=== PATIENT | male | born 1955 | race African-American/Black ===

== ENCOUNTER → 2017-08-14 | Outpatient (CLI) | payer OTHER ==
[~2017-08-14] MED LIST: CONTRAST GIVEN MC
[2017-08-14] MEDS: IOHEXOL 300 MG/ML 100ML VIAL. IV (09:51)
[2017-08-14] MEDS: IOHEXOL 240 MG/ML 50ML VIAL. PO (09:51)
== END | disposition home or self-care (01) ==
LOC: NM 08:25
DX: C61 Malignant neoplasm of prostate (principal); C79.51 Secondary malignant neoplasm of bone; I10 Essential (primary) hypertension; Z87.891 Personal history of nicotine dependence
CPT/HCPCS: 71260; 74177; 78306; 96374; A9503; Q9966; Q9967

== ENCOUNTER → 2017-10-17 | Outpatient (CLI) | payer OTHER ==
[2017-10-17] MEDS: IOHEXOL 300 MG/ML 100ML VIAL. IV (07:15)
[2017-10-17] MEDS: IOHEXOL 240 MG/ML 50ML VIAL. PO (07:15)
== END | disposition home or self-care (01) ==
LOC: CT 07:59
DX: C61 Malignant neoplasm of prostate (principal); C79.51 Secondary malignant neoplasm of bone; N28.1 Cyst of kidney, acquired; K76.89 Other specified diseases of liver
CPT/HCPCS: 71260; 74177; Q9966; Q9967

== ENCOUNTER 2017-10-31 07:06 | Outpatient (CLI) | payer OTHER ==
[2017-10-31 07:34] LABS: ADD MAN DIFF? NO
[2017-10-31 07:38] LABS: BASO # 0.1 x10^3/uL (0.0-0.2); BASO % 1 % (0-3); EOS # 0.1 x10^3/uL (0.0-0.7); EOS % 3 % (0-3); HEMATOCRIT 33.7 % (39.0-53.0); HEMOGLOBIN 11.6 g/dL (13.0-17.5); LYMPH % 25 % (24-48); MEAN CORPUSCULAR HEMOGLOBIN 32 pg (25-35); MEAN CORPUSCULAR HGB CONC 34 g/dL (31-37); MEAN CORPUSCULAR VOLUME 92 fL (79-100); MONO # 0.4 x10^3/uL (0.0-1.1); MONO % 10 % (0-9); NEUT # 2.5 x10^3uL (1.8-7.7); NEUT % 61 % (31-73); PLATELET COUNT 185 x10^3/uL (140-400); RED BLOOD COUNT 3.68 x10^6/uL (4.30-5.70); RED CELL DISTRIBUTION WIDTH 17.8 % (11.5-14.5); WHITE BLOOD COUNT 4.1 x10^3/uL (4.0-11.0)
[2017-10-31 07:46] LABS: INR 1.1 (0.8-1.1); PROTHROMBIN TIME PATIENT 13.6 SEC (11.7-14.0)
[2017-10-31 07:47] LABS: PARTIAL THROMBOPLASTIN TIME 30 SEC (24-38)
[2017-10-31] MEDS ORDERED: MIDAZOLAM HCL/PF 2 MG/2 ML VIAL. (07:54)
[2017-10-31] MEDS ORDERED: GELATIN SPONGE SIZE 12-7MM SPONGE. (07:54)
[2017-10-31] MEDS ORDERED: fentaNYL PF VIAL 100 MCG/2 ML VIAL (07:54)
[2017-10-31] MEDS ORDERED: LIDOCAINE WITH 8.4% SOD BICARB 3 ML DISP.SYRIN. (07:54)
[2017-10-31] MEDS: GELATIN SPONGE SIZE 12-7MM SPONGE. TP (08:15)
[2017-10-31] MEDS: LIDOCAINE WITH 8.4% SOD BICARB 3 ML DISP.SYRIN. IJ (08:46)
[2017-10-31] MEDS: MIDAZOLAM HCL/PF 2 MG/2 ML VIAL. IV (08:47)
[2017-10-31] MEDS: fentaNYL PF VIAL 100 MCG/2 ML VIAL IV (08:47)
== END 2017-10-31 11:54 | disposition home or self-care (01) ==
LOC: INTRAD 07:06
DX: C61 Malignant neoplasm of prostate (principal); R97.20 Elevated prostate specific antigen [PSA]; Z79.01 Long term (current) use of anticoagulants
CPT/HCPCS: 36415; 47000; 76942; 85025; 85610; 85730; 99152; J2250; J3010